=== PATIENT | female | born 1965 | race Caucasian/White ===

== ENCOUNTER 2019-12-28 17:52 | Inpatient (IN) ==
--- NOTE | 2019-12-28 18:21 | PROVIDER DOCUMENTATION ---
HPI-General Adult - General Chief Complaint: Abdominal Pain Stated Complaint: FLUID OVERLOAD Time Seen by Provider: 12/28/19 18:06 Source: patient Allergies/Adverse Reactions: Patient Allergies Allergy/AdvReac Type Severity Reaction Status Date / Time codeine Allergy SWELLING Verified 12/27/19 15:33 Home Medications: Home Medication List Medication Instructions Recorded Confirmed Last Taken Type Esomeprazole Magnesium 40 mg PO DAILY 12/27/19 12/27/19 Unknown History Furosemide [Lasix] 40 mg PO DAILY 12/27/19 12/27/19 Unknown History Hydromorphone [Dilaudid] 2 mg PO Q4H PRN PRN #9 tab 12/27/19 Unknown Rx LISINOpril [Prinivil] 20 mg PO DAILY 12/27/19 12/27/19 Unknown History Nadolol 20 mg PO DAILY 12/27/19 12/27/19 Unknown History Paroxetine HCl [Paxil] 30 mg PO DAILY 12/27/19 12/27/19 Unknown History Spironolactone 100 mg PO DAILY 12/27/19 12/27/19 Unknown History - History of Present Illness -Gen Adult Nature of Presenting Problems: [id number] presents to the ER for the second time in 2 days. She was seen at [facility] yesterday for a head injury and ascites/acute hepatic encephalopathy. Dr Parks, who is also the attending here today, attempted to admit the patient to the hospital from [facility]. However, the patient refused. She is here today, with increasing confusion, lethargy, and edema. Location of Pain/Injury: reports: abdomen Timing: reports: getting worse Associated Symptoms: denies: cough, vomiting Similar Symptoms Previously?: Yes Recently seen or treated by another doctor?: Yes Review of Systems - Adult - REVIEW OF SYSTEMS - ADULT Constitutional: reports: see HPI Eyes: reports: no symptoms reported Ears, Nose, Mouth & Throat: reports: no symptoms reported Cardiovascular: reports: see HPI, palpitations Respiratory: reports: no symptoms reported Gastrointestinal: reports: see HPI, abdominal pain (distention) Genitourinary: reports: no symptoms reported Musculoskeletal: reports: no symptoms reported Integumentary: reports: see HPI, other (yellowing of skin) Neurological: reports: see HPI, slurred speech, other (lethargy) Psychiatric: reports: no symptoms reported Endocrine: reports: no symptoms reported Hematologic/Lymphatic: reports: no symptoms reported Allergic/Immunologic: reports: no symptoms reported All Other Systems: Reviewed and Negative Past History - Adult - PAST MEDICAL HISTORY-ADULT Review of Records: reports: Old Records Reviewed, Nursing Assessment Review, Medications Reviewed, Social history reviewed & non-contributory. Major Childhood Illnesses: reports: denies history Cardiovascular: reports: denies history Respiratory: reports: denies history Gastrointestinal: reports: liver disease ([place]) Obstetrical/Gynecological: reports: denies history Genitourinary: reports: denies history Musculoskeletal: reports: denies history Neurological: reports: denies history Endocrine/Immune: reports: denies history Other Conditions: reports: denies history - IMMUNIZATION STATUS Childhood Immunizations: See Nurse Assessment Flu Vaccine: See Nurse Assessment - FAMILY HISTORY Family History: reviewed, not pertinent - SOCIAL HISTORY Living Situation: family Physical Exam-General - PHYSICAL EXAM-ADULT Initial Vital Signs Reviewed: Yes - CONSTITUTIONAL General Appearance: thin (with abd distention), lethargic, slow to respond - EYES Eyes: PERRL/EOMI, scleral icterus - HEAD, EARS, NOSE, MOUTH & THROAT HENMT: normocephalic/atraumatic, moist mucous membranes, TMs normal - NECK Neck: non-tender, full range of motion, supple - RESPIRATORY Respiratory: lungs clear, normal breath sounds, increased rate - CARDIOVASCULAR Cardiovascular: tachycardia - GASTROINTESTINAL (ABDOMEN) Abdominal Exam: distended, tenderness (generalized) - SKIN Integumentary: warm/dry, jaundice - PSYCHIATRIC Psych/Mental Status: negative: normal thought content (slow to process questions, slow to answer, falls asleep during conversation) Progress - PLAN OF CARE/RESULTS Progress/Plan/Lab Results: Orders Category Date Time Status CT ABDOMEN/PELVIS W/O CONTRAST [CT] Stat Exams 12/28/19 18:15 Ordered AMMONIA [CHEM] Stat Lab 12/28/19 18:15 Uncollected CBC WITH ELECTRONIC DIFF [HEME] Stat Lab 12/28/19 18:14 Uncollected COMPREHENSIVE METABOLIC PANEL [CHEM] Stat Lab 12/28/19 18:15 Uncollected UA NIMS W/REFLEX CULT [URINALYSIS] Stat Lab 12/28/19 18:15 Uncollected URINE DRUG SCREEN Stat Lab 12/28/19 18:15 Uncollected Result Diagrams: 12/28/19 18:11 - CONSULTS/PCP/HOSPITALIST Notification #1 *Consult/PCP/Hospitalist*: SARIAH Agarwal Time Discussed: 18:48 Reason/Comments: ascites, hepatic encephalopathy Consult Disposition: Admit Departure - Departure Date of Disposition Decision: 12/28/19 Time of Disposition Decision: 18:49 DIAGNOSIS: Ascites of liver, Hepatic encephalopathy Disposition: ADMITTED INPATIENT 09 [facility] Medical Emergency: Emergent Condition: Critical Additional Instructions: ED Follow Up Instructions: You have been treated by a care provider in the Emergency Department. These instructions are being provided to you so you can have an understanding of how to care for yourself upon discharge. Upon discharge from the Emergency Department, you are responsible for making arrangements for follow-up care by a physician of your choice. Take all prescribed medications as directed. Return to the Emergency Department immediately for any new or worsening symptoms. You may call the Physician Referral phone number at [phone] to obtain a list of Physicians who are taking new patients. Referrals and Follow-Ups: Hemant Nair MD [Primary Care Provider] - - Critical Care Note This patient required my direct & personal management of CC.: No Attestation - Physician/ HANNAH Attestation Patient care was provided by Advanced Practice Provider:: Yes Advanced Practice Provider:: Richie Paris Advanced Practice Provider documentation review:: The Mid-level provider documentation, treatment plan and medical decision making was reviewed by the physician who agrees with all treatment and medical decision making by the MLP. The physician spent face to face time with patient:: No Advanced Practice Provider documentation review:: Supervising physician onsite and consulted in the evaluation and care of this patient. The physician did not have a face to face encounter with the patient.
[2019-12-28 18:54] LABS: BASO# 0.03 X1000 (0.0-0.2); BASO% 0.2 % (0.0-0.8); EOS# 0.44 X1000 (0.0-0.7); EOS% 3.5 % (0.0-10.0); HEMATOCRIT 25.7 % (37.0-47.0); HEMOGLOBIN 8.9 g/dL (12.0-16.0); LYMPH# 1.16 X1000 (1.2-3.4); LYMPH% 9.1 % (20.5-51.1); MCH 33.2 PG (27-31); MCHC 34.6 g/dL (33-37); MCV 95.9 FL (81-99); MONO# 1.33 X1000 (0.11-0.59); MONO% 10.4 % (1.7-9.3); MPV 8.7 FL (7.4-10.4); NEUT# 9.79 X1000 (1.4-6.5); NEUT% 76.8 % (42.2-75.2); PLT 202 X1000 (130-400); RBC 2.68 XMIL (4.2-5.4); RDW 15.4 % (11.5-14.5); WBC 12.75 X1000 (4.8-10.8)
[2019-12-28 18:56] LABS: AGAP 8; ALB/GLOB RATIO 0.7; ALBUMIN 2.8 g/dL (3.5-5.0); ALKALINE PHOSPHATASE 104 U/L (32-104); BUN 8 mg/dL (8-22); CALCIUM 8.4 mg/dL (8.8-10.2); CHLORIDE 92 mmol/L (98-107); COSMO 249; CREATININE 0.6 mg/dL (0.5-0.9); ESTIMATED GFR > 60; GLUCOSE 116 mg/dL (70-104); GOT 42 U/L (10-30); GPT 24 U/L (10-36); POTASSIUM 4.3 mmol/L (3.5-5.1); SODIUM 124 mmol/L (136-145); TCO2 24 mmol/L (25-35); TOTAL BILIRUBIN 5.43 mg/dL (0.20-1.00); TOTAL PROTEIN 6.8 g/dL (6.3-8.3)
[2019-12-28 19:03] LABS: INR 1.55; PROTIME 18.9 Seconds (11.0-16.0)
[2019-12-28 19:04] LABS: PTT 44.6 Seconds (22.3-41.8)
--- NOTE | 2019-12-28 19:25 | Diag Imaging Result Doc PS360 ---
EXAM: CT ABDOMEN/PELVIS W/O CONTRAST INDICATION: ascites TECHNIQUE: This exam was performed using automated exposure control, adjustment of mA or kV according to patient size, and/or use of iterative reconstruction technique. COMPARISON: None. FINDINGS: There is a large right pleural effusion and marked atelectasis of the right lower lobe. There is patchy airspace consolidation in the lingula and the superior aspect of the left upper lobe suggesting patchy pneumonia versus edema. There is no pleural effusion on the left. There is large volume ascites seen throughout the abdomen. There are calcified stones in the gallbladder lumen. There is questionable mild nodularity at the liver contour which could indicate cirrhosis. The liver is grossly unremarkable as imaged with unenhanced CT, otherwise. There is borderline to mild prominence of the spleen measuring 13.1 cm axially. The pancreas and adrenal glands are unremarkable. The kidneys are unremarkable. The urinary bladder is distended and is unremarkable, otherwise. There appears to have been a prior hysterectomy. There is no evidence of bowel obstruction. The ascending colonic wall appears somewhat thickened. This may be due to the adjacent ascites, however. Correlate clinically to exclude colitis. The remainder of the GI tract is essentially unremarkable. No free abdominal gas is appreciated. There is diffuse mesenteric edema. There is diffuse body wall anasarca. There is no evidence of acute osseous abnormality. IMPRESSION: 1.Large volume ascites. 2.Diffuse mesenteric edema and body wall edema suggesting anasarca. 3.Questionable slight nodularity of the liver contour which could indicate cirrhosis. 4.Borderline to mildly prominent spleen. 5.Somewhat thickened ascending colonic wall, which could be due to the adjacent ascites. Correlate clinically to exclude colitis. 6.Large right pleural effusion with prominent right lower lobe atelectasis. Electronically signed by Hemant Arrington 12/28/2019 7:22 PM
[2019-12-28] MEDS ORDERED: LACTULOSE PO ONE (20:12)
[2019-12-28 20:31] LABS: URINE SOURCE CLEAN CATCH
[2019-12-28 20:38] LABS: BILIRUBIN URINE NEGATIVE (NEGATIVE); BLOOD URINE NEGATIVE (NEGATIVE); COLOR YELLOW; GLUCOSE URINE NEGATIVE (NEGATIVE); KETONE URINE NEGATIVE (NEGATIVE); LEUKOCYTES URINE NEGATIVE (NEGATIVE); NITRITE URINE NEGATIVE (NEGATIVE); PROTEIN URINE NEGATIVE (NEGATIVE); SP GRAVITY URINE 1.015; TURBIDITY URINE CLEAR (CLEAR); UROBILINOGEN URINE 2 mg/dL (NORMAL)
[2019-12-28 20:39] LABS: UR EPITHELIAL CELLS <10 /HPF (<10); URINE BACTERIA NEGATIVE /HPF; URINE RBC <10 /HPF (<10); URINE WBC <10 /HPF (<10)
[2019-12-28 21:01] LABS: UR AMPHETAMINES QUAL NONE DETECTED (NONE DETECT); UR BARBITUATES QUAL NONE DETECTED (NONE DETECT); UR BENZODIAZEPIN QUAL NONE DETECTED (NONE DETECT); UR CANNABINOIDS QUAL NONE DETECTED (NONE DETECT); UR COCAINE QUAL NONE DETECTED (NONE DETECT); UR METHADONE QUAL NONE DETECTED (NONE DETECT); UR OPIATES QUAL PRESUMPTIVE POSITIVE (NONE DETECT); UR OXYCODONE QUAL NONE DETECTED (NONE DETECT); UR PCP QUAL NONE DETECTED (NONE DETECT)
--- NOTE | 2019-12-28 21:29 | HISTORY AND PHYSICAL ---
REASON FOR ADMISSION: Increasing weakness and lethargy over the last 1 week. She is a patient of Dr. Hemant Nair. Ms. Dang Ramos is a 54-year-old white female with a past medical history of chronic liver disease, hypertension, and reflux disease, who was seen yesterday after she fell and landed on her back. A head CT was done to rule out intracranial bleed. We were going to admit her yesterday. She declined admission. Came in today at the behest of her mother who noticed that the patient has become more lethargic, weak, and somewhat intermittently confused. The patient herself is able to follow commands and understand basic instructions. She is very slow to respond to questions at this time. Hence this is limiting for history from this patient. She admits to having diffuse back pain. No abdominal pain, but says that her abdomen has gotten more distended over the last week. No PND or orthopnea. No chest pain. No fever. No chills. No diarrhea. No nausea or vomiting. REVIEW OF SYSTEMS: Twelve-system review was done, albeit limited, with positive findings noted above. ALLERGIES: Codeine. HOME MEDICATIONS: Have not been officially reconciled, although I did notice that the patient was given some Dilaudid 2 mg yesterday. SURGICAL HISTORY: Patient says she has only had a tonsillectomy and hysterectomy. FAMILY HISTORY: Negative for liver disease, but positive history for type 2 diabetes and heart disease. SOCIAL HISTORY: Says she does not smoke or use illicit drugs. Does not smoke. Drinks "socially." LABORATORY [place]: [place] [id number], hemoglobin and hematocrit 9 and 25, platelets 202, neutrophils 76%. Sodium is 124, BUN is 8, creatinine 0.6. Bilirubin is 5.4, ammonia 40. Troponin and lactate are negative. PT is 19, INR 1.5. CT abdomen shows large-volume ascites, diffuse mesenteric edema and wall edema, questionable nodularity of the liver contour suggestive of cirrhosis. Mild splenomegaly. Somewhat thickened ascending colonic wall. Large right pleural effusion with prominent right lobe atelectasis. Urinalysis is pending. Blood cultures were drawn. PHYSICAL EXAMINATION: VITAL SIGNS: Blood pressure 122/72. GENERAL: She is a chronically ill, lethargic, somnolent, middle-aged white female. She is oriented to person and place, but off on time. Affect is flat. HEENT: Head is normocephalic, atraumatic. Eyes: ARINA, EOMI. She is icteric. Mildly pale. ENT exam negative. Mild xerostomia. No exudates, no cyanosis. NECK: Supple with noticeable JVD. Borderline hepatojugular reflux. CHEST: Decreased air entry in the right lower half of the lung. No wheezes. No crepitations. CARDIOVASCULAR: First and second heart sounds heard. No gallops, murmurs or rubs. Rhythm is regular. ABDOMEN: Distended, soft. Positive fluid wave. No tenderness noted. No masses appreciated. Bowel sounds are not heard. RECTAL: Exam deferred. EXTREMITIES: There is 2+ pitting edema up to the midshin. No clubbing or peripheral cyanosis. Distal pulse volumes are diminished. NEUROLOGICAL: Mild asterixis. No focal deficits. SKIN: Intact with slightly decreased turgor. MUSCULOSKELETAL: Significantly hypotonic. ASSESSMENT: 1. Hepatic encephalopathy. 2. Hypovolemic, hypotonic hyponatremia secondary to cirrhosis. 3. Anemia of chronic inflammation. 4. Leukocytosis of questionable etiology. 5. Intravascular volume depletion. 6. Cirrhosis, 7. Hypertension. PLAN: Patient will be admitted and started on lactulose and Xifaxan to address encephalopathy. Cannot rule out underlying spontaneous bacterial peritonitis as a trigger here, and the patient is on Rocephin, since I doubt we have Claforan in-house. Consult GI to see patient. Patient will undergo diagnostic and therapeutic paracentesis tomorrow. Decision whether to use albumin should be addressed prior to prior to paracentesis tomorrow based on albumin levels tomorrow. The patient clinically is intravascularly depleted, and I am somewhat at a loss as to whether to give the patient crystalloids versus to diurese the patient. We will hold off for either decision pending paracentesis at which time things will become much more clear. Continue beta blockers and/or spironolactone for cirrhotic disease and blood pressure. Follow up with ascitic fluid analysis. cc: MD Hemant Bell MD
[2019-12-28] MEDS ORDERED: TYLENOL PO PRN (22:24)
[2019-12-28] MEDS ORDERED: ZOFRAN IV PRN (22:24)
[2019-12-28] MEDS: XIFAXAN PO SCH (23:33)
[2019-12-28] MEDS: ZINC SULFATE PO SCH (23:33)
[2019-12-28] MEDS: ROCEPHIN 1 GM in NS 50 ML IV SCH (23:33)
[2019-12-28] MEDS: LACTULOSE PO SCH (23:33)
[2019-12-29] MEDS: LACTULOSE PO SCH ×2 (06:56→10:50)
[2019-12-29 07:02] LABS: BASO# 0.06 X1000 (0.0-0.2); BASO% 0.5 % (0.0-0.8); EOS# 0.37 X1000 (0.0-0.7); EOS% 2.8 % (0.0-10.0); HEMOGLOBIN 8.4 g/dL (12.0-16.0); IMM GRAN# 0.04 X1000 (0.0-0.04); IMM GRAN% 0.3 % (0.0-0.5); LYMPH# 1.19 X1000 (1.2-3.4); MCH 31.8 PG (27-31); MCHC 33.6 g/dL (33-37); MCV 94.7 FL (81-99); MONO# 1.57 X1000 (0.11-0.59); MONO% 11.8 % (1.7-9.3); MPV 8.9 FL (7.4-10.4); NEUT# 10.06 X1000 (1.4-6.5); NEUT% 75.6 % (42.2-75.2); PLT 204 X1000 (130-400); RBC 2.64 XMIL (4.2-5.4); RDW 15.4 % (11.5-14.5); WBC 13.29 X1000 (4.8-10.8)
[2019-12-29 07:27] LABS: AGAP 10; ALB/GLOB RATIO 0.7; ALBUMIN 2.7 g/dL (3.5-5.0); ALKALINE PHOSPHATASE 100 U/L (32-104); BUN 10 mg/dL (8-22); CALCIUM 8.5 mg/dL (8.8-10.2); CHLORIDE 94 mmol/L (98-107); COSMO 254; CREATININE 0.6 mg/dL (0.5-0.9); ESTIMATED GFR > 60; GLUCOSE 102 mg/dL (70-104); GOT 40 U/L (10-30); GPT 21 U/L (10-36); MAGNESIUM 1.4 mg/dL (1.5-2.7); POTASSIUM 4.3 mmol/L (3.5-5.1); SODIUM 127 mmol/L (136-145); TCO2 23 mmol/L (25-35); TOTAL BILIRUBIN 5.31 mg/dL (0.20-1.00); TOTAL PROTEIN 6.5 g/dL (6.3-8.3)
[2019-12-29 07:35] LABS: INR 1.75; PROTIME 20.8 Seconds (11.0-16.0)
[2019-12-29] MEDS ORDERED: MAGNESIUM SULFATE 4 GM/S.W.I. 4 GM/100 ML IVPB IV ONE (09:15)
--- NOTE | 2019-12-29 10:07 | Diag Imaging Result Doc PS360 ---
US ABD PARACENTESIS W S/I - 12/29/2019 INDICATION: diagnostic and therapeutic paracent COMPARISON: CT from 12/28/2019 FINDINGS: The risks and benefits of the procedure were discussed with the patient. All questions were answered. Written and verbal consent was obtained. Ultrasound scanning demonstrated ascites. Overlying skin was prepped and draped in sterile fashion. Anesthesia was achieved with injection of 10 cc 1% lidocaine. The paracentesis catheter was advanced until the return of ascites fluid. 6.3 L was aspirated. The catheter was withdrawn intact. The patient reported no symptoms from the procedure. IMPRESSION: Successful and uncomplicated ultrasound-guided paracentesis. Electronically signed by Humble Saunders 12/29/2019 10:04 AM
[2019-12-29] MEDS: ZINC SULFATE PO SCH ×2 (10:51→20:33)
[2019-12-29] MEDS: XIFAXAN PO SCH ×2 (10:51→20:33)
[2019-12-29] MEDS: ALDACTONE PO SCH (10:51)
[2019-12-29] MEDS: PROTONIX IV SCH ×2 (11:03→20:32)
[2019-12-29] MEDS: SODIUM CHLORIDE 0.9% INJ SCH ×2 (11:03→20:33)
[2019-12-29 11:48] LABS: ALBUMIN BODY FLUID 0.6 g/dL; AMYLASE BODY FLUID 9 U/L
[2019-12-29 12:08] LABS: BODY FLUID SOURCE PERITONEAL FLUID; WBC BF 105 /cumm
[2019-12-29 12:09] LABS: MONOS 53 %; POLYS 47 %
[2019-12-29] MEDS: VITAMIN K 10 MG in NS 50 ML IV SCH (12:44)
--- NOTE | 2019-12-29 14:30 | PROGRESS NOTE ---
DATE: 12/29/2019 SUBJECTIVE: The patient reports feeling fine. She had a paracentesis this morning. Apparently, they have removed 6.2 L of ascitic fluid. OBJECTIVE: Vital Signs: Temperature 98.4 degrees, heart rate 121, respiratory rate 18, blood pressure 125/65, O2 saturation 95% on room air. General Examination: This is a chronically ill- looking, 54-year-old, female lying in bed, in no acute distress. Cardiovascular Examination: S1 and S2 heard. No murmurs, gallops, or rubs. Regular rate and rhythm. Respiratory Examination: Clear bilaterally to auscultation. No work of breathing or using accessory muscles. Abdomen: Distended. Ascites present. Bowel sounds present but distant. No organomegaly is noted. Extremities: No clubbing or cyanosis but there is 2+ pitting edema in both lower extremities. Neurological Examination: Mild asterixis. No focal deficits. The patient is alert and oriented. Laboratory Data: White cell count 13.39, hemoglobin 8.4, hematocrit 25.0, platelets 205,000. INR 1.75. BMP reveals sodium 127, with phosphorus 3.6, on admission 1.4. ASSESSMENT AND PLAN: 1. Hepatic encephalopathy. That condition I think is better. She is on rifaximin and lactulose. I think she has been in mild encephalopathy, mild asterixis. She looks definitely oriented and alert. We will continue with current management. 2. Massive ascites. We have performed an ultrasound-guided paracentesis and we removed so far 6.2 L of ascitic fluid. Labs have been ordered for this ascitic fluid. 3. Anemia of chronic disease. Stable. We will continue to monitor CBC. 4. Leukocytosis of questionable etiology. The patient has been started on Rocephin for possible spontaneous bacterial peritonitis. Physical exam did not disclose any signs of peritoneal irritation. At this point, we will continue with the same management. 5. Hypertension. Blood pressure is under control. We will continue with the same management. cc: Jesus Ocampo MD
--- NOTE | 2019-12-29 16:27 | GASTROENTEROLOGY CONSULTATION ---
DATE: 12/29/2019 HEPATOLOGY: Dr Castillo at [facility] REASON FOR CONSULT: Hepatic encephalopathy. HISTORY OF PRESENT ILLNESS: Ms. Ramos is a 54-year-old female who came into the hospital yesterday complaining that she was weak and tired with low-grade fever and chills. She has a past medical history of chronic alcoholic liver disease complicated with cirrhosis, hypertension, and reflux disease. She mentioned that she had fallen backwards on her head in the garage at home. Head and cervical spine CT showed no acute injury. Her mother had brought her to the hospital mentioning that the patient had been lethargic, weak, confused and was not able to follow any commands or follow any instructions. She has denied any nausea, vomiting, or abdominal pain. PAST MEDICAL HISTORY: Hypertension, chronic liver disease, GERD, Alcoholic cirrhosis, alcoholism quit since june [address] Castillo in October 2019 and her follow up appointment is on January 18, 2020 at [facility]. PAST SURGICAL HISTORY: Tonsillectomy and hysterectomy. ALLERGIES: Codeine. FAMILY HISTORY: Positive for diabetes and heart disease. SOCIAL HISTORY: The patient is a . She does not smoke or use illicit drugs, but used to have drink alcohol for many years and quit since june 2019. HOME MEDICATIONS: Nadolol 20 mg p.o. daily, omeprazole magnesium 40 mg p.o. daily, Lasix 40 mg p.o. daily, lisinopril is 20 mg p.o. daily, Paxil is 30 mg p.o. daily, Aldactone is 150 mg p.o. daily, Dilaudid 2 mg tablet every four hours as needed, Xanax 0.25 mg p.o. daily, gabapentin 300 mg two capsules p.o. twice a day, lactulose 15 mL is two tablespoons p.o. twice a day. REVIEW OF SYSTEMS: As per HPI, otherwise 12 point review of system is negative. PHYSICAL EXAM: Vital Signs: Temperature 98.4 degrees, pulse 121, respirations 18, blood pressure is 121/71, oxygen saturation 95% on room air. Weight is 179 pounds. BMI is 29.9 kg/m2. General: She is alert, oriented x1, and has periods of confusion. HEENT: Pale conjunctivae. Mild icterus. PERRL. Neck: Supple. Lungs: Clear to auscultation. Cardiovascular: The patient is tachycardic. Abdomen: Distended, Positive Ascites. Nontender. Hypoactive bowel sounds heard in all four quadrants. Extremities: No clubbing or cyanosis. Generalized edema in the lower extremities and upper extremities. Neurologic: Alert oriented x1. LABORATORY DATA: WBCs 13.29, RBC is 2.64, hemoglobin is 8.4, hematocrit is 25.5, platelet count is 204,000. PT 20.8, INR is 1.75. Sodium is 127, potassium is 4.3, chloride is 94, carbon dioxide is 23, anion gap is 10, BUN is 10, creatinine is 0.6, glucose is 102, calcium is 8.5. Phosphorus is 3.6, magnesium is 1.4, total bilirubin is 5.31, AST 40, ALT 21, alkaline phosphatase 100, albumin is 2.7. Toxicology has shown presumptive positive for opioids. IMAGING: U/s guided paracentesis was done today and 6.2 L fluid was taken out. IMPRESSION AND PLAN: Likely Alcoholic Cirrhosis Ascites Anemia Coagulopathy Jaundice Need to rule out SBP Hepatic encephalopathy PLAN: Ms. Ramos is a 54-year-old female with a history of liver disease. GI is following her for hepatic encephalopathy. The patient is currently receiving Xifaxan and lactulose for her hepatic encephalopathy. The patient does have ascites and the paracentesis was done today. 6.2 L of fluid was taken out. We have sent her fluids to check for SBP. Fluid cultures are pending. The patient is also receiving antibiotic, Rocephin. She is on PPIs twice a day. We will continue to monitor the patient and follow the plan of care per PCP. This plan was discussed with Dr. Jones. Patient will continue to follow up with Dr Castillo at [facility] as scheduled. Restrict sodium to less than 2g in 24 hours and may need free fluid restriction to less than 1.5 litres in 24 hours for help manage hyponatremia and Ascites. Continue to check Labs like CBC CMP PT PTT INR daily. Thank you for your consult. Please call us for any further questions or concerns. Dictated by SARIAH Vazquez for Evan Jones MD cc: Evan Jones MD I have seen and examined the patient myself and I agree with the above plan of care. Please call us with any further questions or concerns. Discussed the plan of care with the patient and her family at bedside. MARGARITA
[2019-12-29] MEDS: ROCEPHIN 1 GM in NS 50 ML IV SCH (20:33)
[2019-12-30] MEDS: PROTONIX IV SCH ×3 (01:24→09:05)
[2019-12-30] MEDS: ROCEPHIN 1 GM in NS 50 ML IV SCH ×3 (01:24→22:38)
[2019-12-30 06:49] LABS: BASO# 0.03 X1000 (0.0-0.2); BASO% 0.3 % (0.0-0.8); EOS% 2.6 % (0.0-10.0); HEMOGLOBIN 8.2 g/dL (12.0-16.0); IMM GRAN# 0.03 X1000 (0.0-0.04); IMM GRAN% 0.3 % (0.0-0.5); LYMPH# 1.39 X1000 (1.2-3.4); MCHC 34.2 g/dL (33-37); MCV 93.8 FL (81-99); MONO# 1.27 X1000 (0.11-0.59); MPV 8.8 FL (7.4-10.4); NEUT# 8.54 X1000 (1.4-6.5); NEUT% 73.8 % (42.2-75.2); PLT 167 X1000 (130-400); RBC 2.56 XMIL (4.2-5.4); RDW 15.6 % (11.5-14.5); WBC 11.56 X1000 (4.8-10.8)
[2019-12-30 07:12] LABS: AGAP 10; ALBUMIN 2.6 g/dL (3.5-5.0); BUN 7 mg/dL (8-22); CALCIUM 8.2 mg/dL (8.8-10.2); CHLORIDE 91 mmol/L (98-107); COSMO 248; CREATININE 0.5 mg/dL (0.5-0.9); ESTIMATED GFR > 60; GLUCOSE 107 mg/dL (70-104); MAGNESIUM 1.6 mg/dL (1.5-2.7); PHOSPHORUS 2.5 mg/dL (2.7-4.5); POTASSIUM 3.9 mmol/L (3.5-5.1); SODIUM 124 mmol/L (136-145); TCO2 23 mmol/L (25-35)
[2019-12-30] MEDS: ALDACTONE PO SCH (08:24)
[2019-12-30] MEDS: XIFAXAN PO SCH ×3 (08:24→22:38)
[2019-12-30] MEDS: ALBUMIN 25% IV SCH (08:24)
[2019-12-30] MEDS: SODIUM CHLORIDE 0.9% INJ SCH (08:24)
[2019-12-30] MEDS: ZINC SULFATE PO SCH ×3 (08:37→22:38)
[2019-12-30] MEDS ORDERED: SODIUM PHOSPHATE 35 MMOL in NS 250 ML IV ONE (08:42)
[2019-12-30] MEDS: VITAMIN K 10 MG in NS 50 ML IV SCH (08:49)
--- NOTE | 2019-12-30 10:03 | Diag Imaging Result Doc PS360 ---
EXAM: WRIST COMPLETE RIGHT 12/30/2019 HISTORY: fall TECHNIQUE: Right wrist three views COMMENT: There is no evidence of fracture or dislocation. There is no evidence of erosion or periosteal reaction. IMPRESSION: No acute bony abnormality. Electronically signed by Adolph Alcaraz 12/30/2019 10:00 AM
[2019-12-30] MEDS: LASIX PO SCH (10:48)
--- NOTE | 2019-12-30 10:48 | PROGRESS NOTE ---
DATE: 12/30/2019 SUBJECTIVE: The patient still has minimal asterixis although she looks a little bit more confused. She was complaining of pain in the right wrist. She had a fall. We have checked x- rays. I did not find any fracture. OBJECTIVE: Vital Signs: Temperature 98.1 degrees, heart rate 116, respiratory rate 20, blood pressure 135/70, and O2 saturation 97% on room air. General: This is a chronically ill-looking, 54-year-old female lying in bed in no acute distress. Cardiovascular: S1 and S2 heard. No murmurs, gallops, or rubs. Regular rate and rhythm. Respiratory: Clear bilaterally to auscultation. No work of breathing or using accessory muscles. Abdomen: Distended. Ascites present. Bowel sounds present, but distant. No organomegaly noted. Extremities: No clubbing or cyanosis, but there is still 2+ pitting edema in both lower extremities. Neurological: Mild asterixis. Sometimes, patient looks a little bit confused and speech is slow, but no focal deficits noted. Patient moves all 4 extremities. LABORATORY DATA: White cell count 11.56, hemoglobin 8.2 hematocrit 24.0, and platelets 167,000 with BMP that reveals sodium 124, normal creatinine, and phosphorus 2.5. ASSESSMENT AND PLAN: 1. Hepatic encephalopathy. I think this patient is having mild degree of hepatic encephalopathy so she is on rifaximin and lactulose. She is looking better today. The plan is to keep her one more day with both medications. Most likely, we will be able to let her go home tomorrow. 2. Suspicious for spontaneous bacterial peritonitis. At the time that she was admitted to the hospital, she was started on antibiotics without doing paracentesis. The studies from ascites did not reveal any infection. I prefer to continue with antibiotics right now. I am also considering that she has some degree of hepatic encephalopathy. Upon discharge, we can switch to any medication that can cover gram-negative like ciprofloxacin tomorrow. 3. Massive ascites. At admission, we performed ultrasound-guided paracenteses, and we removed so far 6.2 L of ascitic fluid. No signs of infection. There is still residual ascites present. We will continue to monitor. 4. Hypertension. Blood pressure is under control. We will continue with same management. 5. Disposition. I think at this point, patient is getting better. Plan to keep her for the next 24 to 48 hours to see that she is more awake, and not having any asterixis. We will continue to monitor this patient in the hospital. cc: Jesus Ocampo MD
--- NOTE | 2019-12-30 12:42 | GASTROENTEROLOGY PROGRESS NOTE ---
DATE: 12/30/2019 SUBJECTIVE: Ms. Ramos is a 54-year-old female. She was sitting on the chair and nursing assistants were providing ADLs. Patient has denied any nausea, vomiting, abdominal pain. She did complain that her head was hurting little bit. The patient has been having positive bowel. OBJECTIVE: Vital Signs: Temperature 98 degrees, pulse is 114, respirations 23, blood pressure 138/72, oxygen saturation 98% on room air. The patient's weight is 179 pounds. BMI is 28.8 kg/m2. General: She is alert, oriented x3. Speech is slow. HEENT: Pale conjunctivae. Mild icterus. PERRL. Neck: Supple. Lungs: Clear to auscultation. Cardiovascular: Patient is tachycardic. Abdomen: Obese, soft, nontender. Has a Band-Aid on the right side of the abdomen where the paracentesis was done. Extremities: No clubbing, no cyanosis, generalized edema. Pedal pulses 2+ bilaterally. Neurologic: Alert, oriented x4. LAB: WBC 11.54, RBC is 2.56, hemoglobin 8.2, hematocrit is 24.0, platelet count is 167,000. Sodium is 124, potassium 3.9, chloride is 91, carbon dioxide is 23, anion gap is 10, BUN 7, creatinine 0.5, glucose is 107, calcium is 8.2, phosphorus is 3.5, magnesium is 1.6, albumin is 2.6. The patient's peritoneal fluid for SBP was negative. Wrist x-ray today showed no acute bony abnormalities. IMPRESSION AND PLAN: 1. Likely alcoholic cirrhosis. 2. Ascites. 3. Anemia. 4. Coagulopathy. 5. Hepatic encephalopathy. 6. Hyponatremia. 7. Hypoalbuminemia. PLAN: Ms. Ramos is a 54-year-old female with a history of liver disease. GI is following her for hepatic encephalopathy. The patient's sodium levels are low. She is currently on a fluid restriction of 1500 mL/h. The patient's peritoneal fluid for SBP has been negative. She is currently receiving antibiotic Rocephin. We will continue with that. Patient is also on Xifaxan and lactulose for hepatic encephalopathy. She is getting vitamin K for her cougulopathy. We will continue to monitor the patient and follow the plan of care per PCP. This plan was discussed with Dr. Pineda. Please call us for any further questions or concerns. Dictated by SARIAH Vazquze for Isidro Pineda MD [facility]
[2019-12-30] MEDS: ULTRAM PO PRN ×2 (14:39→20:52)
[2019-12-31] MEDS: ULTRAM PO PRN ×2 (04:25→11:51)
[2019-12-31] MEDS: PROTONIX PO SCH ×2 (05:36→08:59)
[2019-12-31 07:09] LABS: BASO# 0.02 X1000 (0.0-0.2); BASO% 0.2 % (0.0-0.8); EOS% 2.8 % (0.0-10.0); HEMOGLOBIN 8.2 g/dL (12.0-16.0); IMM GRAN# 0.03 X1000 (0.0-0.04); IMM GRAN% 0.3 % (0.0-0.5); LYMPH# 1.07 X1000 (1.2-3.4); MCH 32.2 PG (27-31); MCHC 34.2 g/dL (33-37); MCV 94.1 FL (81-99); MONO# 1.24 X1000 (0.11-0.59); MONO% 11.5 % (1.7-9.3); MPV 8.7 FL (7.4-10.4); NEUT# 8.09 X1000 (1.4-6.5); NEUT% 75.2 % (42.2-75.2); PLT 145 X1000 (130-400); RBC 2.55 XMIL (4.2-5.4); RDW 15.6 % (11.5-14.5); WBC 10.75 X1000 (4.8-10.8)
[2019-12-31 07:45] LABS: AGAP 11; ALBUMIN 2.8 g/dL (3.5-5.0); BUN 4 mg/dL (8-22); CALCIUM 8.2 mg/dL (8.8-10.2); CHLORIDE 92 mmol/L (98-107); COSMO 250; CREATININE 0.5 mg/dL (0.5-0.9); ESTIMATED GFR > 60; GLUCOSE 92 mg/dL (70-104); PHOSPHORUS 2.7 mg/dL (2.7-4.5); POTASSIUM 3.3 mmol/L (3.5-5.1); SODIUM 126 mmol/L (136-145); TCO2 23 mmol/L (25-35)
[2019-12-31] MEDS ORDERED: KLOR-CON POWDER PACKET PO ONE (08:03)
[2019-12-31] MEDS: ALBUMIN 25% IV SCH (09:00)
[2019-12-31] MEDS: VITAMIN K 10 MG in NS 50 ML IV SCH (09:04)
[2019-12-31] MEDS: XIFAXAN PO SCH (09:04)
[2019-12-31] MEDS: ZINC SULFATE PO SCH (09:05)
[2019-12-31] MEDS: ALDACTONE PO SCH (09:05)
[2019-12-31] MEDS: LASIX PO SCH (09:05)
[2019-12-31] MEDS ORDERED: LACTULOSE PO SCH (09:45)
[2019-12-31] MEDS ORDERED: BLISTEX MEDICATED BERRY LIP BALM TOP PRN (11:55)
[2019-12-31 12:20] VITALS: BP 124/73
--- NOTE | 2019-12-31 13:37 | PROVIDER PROGRESS NOTE ---
Progress Note S: No acute overnight events. No N/V/F, CP, SOB, abdominal pain, rectal bleeding. She is tolerating PO. No confusion. O: Last Vital Signs Temp 98.4 F 12/31/19 12:19 Pulse 104 H 12/31/19 12:19 Resp 16 12/31/19 12:19 BP 124/73 12/31/19 12:19 Pulse Ox 99 12/31/19 12:19 Height 5 ft 5 in Weight 179 lb GEN: chronically ill appearing, NAD HEENT: mild icterus, MMM NECK: supple, no JVD PULM normal WOB CV: tachycardic, regular ABD: soft, distended, NT, BS present +ascites EXT: no cce NEURO: AAOx3, no asterixis LABS: 12/31/19 12/31/19 06:18 06:18 WBC 10.75 Hgb 8.2 L Plt Count 145 Sodium 126 L Potassium 3.3 L D Chloride 92 L Carbon Dioxide 23 L BUN 4 L Creatinine 0.5 Glucose 92 A/P Ms. Dang Ramos is a 54 year old woman with history of decompensated ETOH cirrhosis who presented with ascites who presented with hepatic encephalopathy and worsening ascites. Diagnostic and therapeutic LVP was negative for SBP. Her mental status has improved with lactulose and xifaxan. CXR was notable for large right hepatic hydrothorax. Labs notable for hypervolemic hyponatremia, thromboc ytopenia, hypokalemia, normocytic anemia, and coagulopathy. I have stopped empiric antibiotics. # Decompensated ETOH cirrhosis - Cirrhosis: check LFTs and INR daily - Ascites: s/p 6.2L removed; continue aldactone 100mg and lasix 40mg daily - PSE: improved; continue xifaxan and lactulose, titrate for 2-3 BMs daily - HCC screening: repeat US q6mo - EV screening: will need EGD to rule out varices as outpatient; defer to primary incinerator plant general supervisor - IMM: HAV/HBV immunity unknown - OLT: MELD-Na 27 yesterday; [facility] # Hypovolemic hyponatremia: continue 1500mL fluid restriction; trending Na # Thrombocytopenia: # Macrocytic anemia: check iron, ferritin, vitamin B12, folate # Coagulopathy: check INR daily # Pleural effusion: continue diuretics # Hypokalemia: replete prn Will follow with you
--- NOTE | 2019-12-31 14:02 | DISCHARGE SUMMARY ---
ADMISSION DATE: 12/28/2019 DISCHARGE DATE: 12/31/2019 ADMISSION DIAGNOSES: 1. Hepatic encephalopathy. 2. Hypovolemic hypotonic hyponatremia secondary to cirrhosis. 3. Anemia of chronic inflammation. 4. Leukocytosis with question of etiology. 5. Intravascular volume depletion. 6. Cirrhosis. 7. Hypertension. DISCHARGE DIAGNOSES: 1. Hepatic encephalopathy. 2. Suspicious for spontaneous bacterial peritonitis. 3. Massive ascites. 4. Hypertension. SURGERIES OR PROCEDURES: Ultrasound-guided paracentesis with 6.2 L of ascitic fluid removed on 12/29/2019. CONSULTATIONS: Jet Knott MD. HOSPITAL COURSE: Ms. Dang Ramos is a 54-year-old female, who presented with increased weakness and lethargy over the last week prior to admission. She has a medical history of chronic liver disease, hypertension, gastric reflux disease, who had a fall the day before presenting, landed on her back. Head CT ruled out any type of bleed, and she was going to be admitted then but she declined admission. She came back in due to the patient becoming more lethargic, weak, and intermittently confused. She is able to follow commands and understand basic instructions, but she was slow to respond to questions, so limited history was obtained on admission. She was having some diffuse back pain and that her abdomen had become much more distended. So on the , she went in for paracentesis ultrasound where they removed 6.3 L of ascitic fluid. Leukocytosis, really unsure as to where it was coming from, she has been started on Rocephin and it was for possible spontaneous bacterial peritonitis. So far no growth on those cultures. Blood cultures are also negative. Urinalysis was negative. She slowly improved, and she is stable for discharge home. DISCHARGE VITAL SIGNS: Temperature 98.4 degrees, heart rate 104, respiratory rate 16, blood pressure 124/73, O2 saturation 99% on room air. DISCHARGE LAB DATA: White blood cells 10,000, hemoglobin 8, hematocrit 24, platelet count 145,000. Sodium 126, potassium 3.3, BUN 4, creatinine 0.5, glucose 92, calcium 8.2, magnesium 1.5, albumin 2.8. Opiates positive in the urine. All cultures, blood and ascites fluid also negative to date. IMAGING: On 12/27 had abdominal and pelvic CT, showed large volume ascites and mesenteric edema with body wall edema. Liver is nodular, which also indicates cirrhosis. Spleen is prominent, somewhat thickened ascending colonic wall, needed to correlate to exclude colitis. Large right pleural effusion with prominent right lower lobe atelectasis. On the had a wrist x-ray of the right wrist with due to her fall and there was no acute findings with that. DISCHARGE MEDICATIONS: 1. Nexium 40 mg p.o. daily. 2. Neurontin 600 mg p.o. twice daily. 3. Lactulose p.o. twice daily. 4. Lasix 40 mg p.o. daily. 5. Paxil 30 mg p.o. daily. 6. Lisinopril 20 mg p.o. daily. 7. Spironolactone 50 mg p.o. daily. 8. Cefdinir 300 mg p.o. twice daily for 5 days. 9. Ultram 50 mg p.o. twice daily p.r.n. 10. Xifaxan 550 mg p.o. twice daily. DISCHARGE DIET: GI soft. DISCHARGE ACTIVITY: As tolerated. DISCHARGE INSTRUCTIONS: If symptoms return, please seek medical attention. Will need to follow up with a all terrain vehicle technician and your primary care provider. DISCHARGE DISPOSITION: Home. Dictated by SARIAH Farrell for Adonis Valente MD cc: SARIAH Farrell Patient admitted with hepatic encephalopathy that resolved with lactulose and rifaximin. some slight concern for SBP. ascites studies didn't really support that but we didn't get them until after she'd already been on antibiotics 2-3 days, so it was decided to finish a course of treatment for possible SBP anyway. her mental status now is essentially normal so she's discharging home. >30 minutes spent arranging discharge and counseling patient. [facility]
[2019-12-31 14:25] LABS: ALB/GLOB RATIO 1.1; ALBUMIN 3.1 g/dL (3.5-5.0); DIRECT BILIRUBIN 1.3 mg/dL (0.00-0.20); TOTAL BILIRUBIN 4.7 mg/dL (0.20-1.00); TOTAL PROTEIN 5.8 g/dL (6.3-8.3)
== END 2019-12-31 15:44 | disposition home health service (06) | DRG 432 ==
LOC: SUPCPDRO → ED 17:52 → SUATTDRO 17:53 → 4N 21:24
PROVIDERS: ATTEND Internal Medicine

== ENCOUNTER 2020-01-13 20:14 | Inpatient (IN) ==
[2020-01-13 21:24] LABS: BASO# 0.06 X1000 (0.0-0.2); BASO% 0.6 % (0.0-0.8); EOS# 0.49 X1000 (0.0-0.7); HEMATOCRIT 26.4 % (37.0-47.0); IMM GRAN# 0.02 X1000 (0.0-0.04); IMM GRAN% 0.2 % (0.0-0.5); LYMPH# 1.57 X1000 (1.2-3.4); LYMPH% 16.1 % (20.5-51.1); MCH 32.1 PG (27-31); MCHC 34.1 g/dL (33-37); MCV 94.3 FL (81-99); MONO# 1.06 X1000 (0.11-0.59); MONO% 10.9 % (1.7-9.3); MPV 9.5 FL (7.4-10.4); NEUT# 6.56 X1000 (1.4-6.5); NEUT% 67.2 % (42.2-75.2); PLT 243 X1000 (130-400); RDW 15.3 % (11.5-14.5); WBC 9.76 X1000 (4.8-10.8)
[2020-01-13 21:29] LABS: URINE SOURCE CLEAN CATCH
[2020-01-13 21:32] LABS: BILIRUBIN URINE NEGATIVE (NEGATIVE); BLOOD URINE NEGATIVE (NEGATIVE); COLOR YELLOW; GLUCOSE URINE NEGATIVE (NEGATIVE); KETONE URINE NEGATIVE (NEGATIVE); LEUKOCYTES URINE NEGATIVE (NEGATIVE); NITRITE URINE NEGATIVE (NEGATIVE); PROTEIN URINE TRACE mg/dL (NEGATIVE); SP GRAVITY URINE 1.016; TURBIDITY URINE HAZY (CLEAR); UROBILINOGEN URINE NORMAL (NORMAL)
[2020-01-13 21:34] LABS: UR EPITHELIAL CELLS <10 /HPF (<10); URINE BACTERIA NEGATIVE /HPF; URINE RBC <10 /HPF (<10)
[2020-01-13 21:41] LABS: URINE CASTS NONE SEEN; URINE YEAST NONE SEEN
[2020-01-13 21:42] LABS: URINE CRYSTALS NONE SEEN
[2020-01-13 21:56] LABS: ALB/GLOB RATIO 0.9; CALCIUM 8.6 mg/dL (8.8-10.2); CREATININE 2.6 mg/dL (0.5-0.9); POTASSIUM 4.7 mmol/L (3.5-5.1); TOTAL BILIRUBIN 2.62 mg/dL (0.20-1.00); TOTAL PROTEIN 6.5 g/dL (6.3-8.3)
[2020-01-13] MEDS ORDERED: NS 500 ML IV ONE (23:18)
--- NOTE | 2020-01-13 23:58 | PROVIDER DOCUMENTATION ---
This chart was entered by Pauline Hurtado Scribe, acting as scribe for Moshe Daly MD. HPI-General Adult - General Chief Complaint: Edema Stated Complaint: SWELLING IN ABDOMEN Time Seen by Provider: 01/13/20 20:39 Source: patient Allergies/Adverse Reactions: Patient Allergies Allergy/AdvReac Type Severity Reaction Status Date / Time codeine Allergy SWELLING Verified 12/27/19 15:33 Home Medications: Home Medication List Medication Instructions Recorded Confirmed Last Taken Type Esomeprazole Magnesium 40 mg PO DAILY 12/27/19 12/29/19 Unknown History Furosemide [Lasix] 40 mg PO DAILY 12/27/19 12/29/19 Unknown History LISINOpril [Prinivil] 20 mg PO DAILY 12/27/19 12/28/19 Unknown History Nadolol 20 mg PO DAILY 12/27/19 12/27/19 Unknown History Paroxetine HCl [Paxil] 30 mg PO DAILY 12/27/19 12/28/19 Unknown History Spironolactone 50 mg PO DAILY 12/27/19 12/28/19 Unknown History Gabapentin 2 cap PO BID 12/28/19 12/28/19 Unknown History Lactulose 2 tbs PO BID 12/28/19 12/28/19 Unknown History Cefdinir 300 mg PO BID #10 cap 12/31/19 Unknown Rx Rifaximin [Xifaxan] 550 mg PO BID tab 12/31/19 Unknown Rx Tramadol [Ultram] 50 mg PO BID PRN PRN #14 tab 12/31/19 Unknown Rx - History of Present Illness -Gen Adult Nature of Presenting Problems: 54 y/o female with history of cirrhosis presents to the ED with complaint of dizziness worse with standing and increasing abdominal ascites and bilateral lower extremity edema. The patient states cirrhosis is non-alcoholic and of unknown origin and last paracentesis at least two weeks ago. She did see her PCP yesterday and after visit from [facility] earlier today she was contacted by Dr. Nair to come to the ED for possible admission. Review of Systems - Adult - REVIEW OF SYSTEMS - ADULT Constitutional: reports: hi Eyes: denies: no symptoms reported Ears, Nose, Mouth & Throat: denies: no symptoms reported Cardiovascular: denies: no symptoms reported Respiratory: denies: no symptoms reported Gastrointestinal: reports: see HPI Genitourinary: denies: no symptoms reported Musculoskeletal: denies: no symptoms reported Integumentary: denies: no symptoms reported Neurological: denies: no symptoms reported Psychiatric: denies: no symptoms reported Endocrine: denies: no symptoms reported Hematologic/Lymphatic: denies: no symptoms reported Allergic/Immunologic: denies: no symptoms reported Past History - Adult - PAST MEDICAL HISTORY-ADULT Review of Records: reports: Nursing Assessment Review, Medications Reviewed, Social history reviewed & non-contributory. Major Childhood Illnesses: reports: denies history Cardiovascular: reports: denies history Respiratory: reports: denies history Gastrointestinal: reports: liver disease ([place]) Obstetrical/Gynecological: reports: denies history Genitourinary: reports: denies history Musculoskeletal: reports: denies history Neurological: reports: denies history Endocrine/Immune: reports: denies history Other Conditions: reports: denies history - IMMUNIZATION STATUS Childhood Immunizations: See Nurse Assessment Flu Vaccine: See Nurse Assessment - FAMILY HISTORY Family History: reviewed, not pertinent Physical Exam-General - PHYSICAL EXAM-ADULT Initial Vital Signs Reviewed: Yes - CONSTITUTIONAL General Appearance: alert - EYES Eyes: PERRL/EOMI, scleral icterus - HEAD, EARS, NOSE, MOUTH & THROAT HENMT: normocephalic/atraumatic, moist mucous membranes - NECK Neck: full range of motion, supple - RESPIRATORY Respiratory: decreased breath sounds (right base). negative: rales, wheezing - CARDIOVASCULAR Cardiovascular: regular rate, rhythm, other (4+ pitting edema bilateral lower extremities) - GASTROINTESTINAL (ABDOMEN) Abdominal Exam: distended, other (ascites) - MUSCULOSKELETAL Extremity: normal capillary refill, pedal edema (4+ pitting bilaterally). neg ative: pulse deficit - SKIN Integumentary: jaundice - NEUROLOGIC Neurologic: grossly normal - PSYCHIATRIC Psych/Mental Status: normal mood/affect, normal thought content, normal thought process Progress - PLAN OF CARE/RESULTS Progress/Plan/Lab Results: Vital Signs - 8 hr 01/13/20 20:22 Temperature 97.7 F Pulse Rate 89 Respiratory Rate 15 Blood Pressure 76/45 O2 Sat by Pulse Oximetry 96 Orders Category Date Time Status NEWS Score 2-4:Order NEWS Lactate Series NOW Care 01/13/20 20:26 Active Saline Loc DIRECTED Care 01/13/20 20:39 Active NPO Diet 01/13/20 20:39 Active AMMONIA [CHEM] Stat Lab 01/13/20 21:00 Ordered AMYLASE [CHEM] Stat Lab 01/13/20 21:00 Ordered BLOOD CULTURE [BLDCUL] Stat Lab 01/13/20 21:00 Ordered CBC WITH ELECTRONIC DIFF [HEME] Stat Lab 01/13/20 21:00 Ordered COMPREHENSIVE METABOLIC PANEL [CHEM] Stat Lab 01/13/20 21:00 Ordered LACTATE, PLASMA [CHEM] Stat Lab 01/13/20 21:00 Ordered LIPASE [CHEM] Stat Lab 01/13/20 21:00 Ordered URINALYSIS W/POSS RFLX CULT [URINALYSIS] Stat Lab 01/13/20 20:39 Uncollected 2315: The patient is orthostatic. Will give bolus. Result Diagrams: 01/13/20 20:47 01/13/20 20:47 - CONSULTS/PCP/HOSPITALIST Notification #1 *Consult/PCP/Hospitalist*: Dr. Beatty, Hospitalist paged at [phone] Time Discussed: 23:43 Reason/Comments: ascites, hypotension, Consult Disposition: Admit Departure - Departure Date of Disposition Decision: 01/13/20 Time of Disposition Decision: 21:21 DIAGNOSIS: Hypotension, Anemia, Ascites, Orthostatic hypotension Disposition: ADMITTED INPATIENT 09 Certified Medical Emergency: Emergent Condition: Stable Referrals and Follow-Ups: Hemant Nair MD [Primary Care Provider] - - Critical Care Note This patient required my direct & personal management of CC.: Yes Total Time (mins): 36 Critical Care Statement: This patient required my direct personal management to treat or rule out processes, the absence of which, could potentiallly result in sudden, clinically significant life or limb threatening deterioration. Attestation - Physician/ HANNAH Attestation Patient care was provided by Advanced Practice Provider:: No The physician spent face to face time with patient:: Yes Advanced Practice Provider documentation review:: Supervising physician onsite and consulted in the evaluation and care of this patient. The physician did have a face to face encounter with the patient. This chart was documented by the indicated scribe, (Pauline Hurtado Scribe) and accurately reflects the services I performed and decisions made by me, Moshe Daly MD, as attested by the provider's signature.
[2020-01-14] MEDS ORDERED: SODIUM CHLORIDE 0.9% INJ PRN (03:36)
[2020-01-14] MEDS ORDERED: ALBUMIN 25% IV ONE ×2 (03:36→13:04)
[2020-01-14] MEDS ORDERED: PHENERGAN IV PRN (03:36)
[2020-01-14] MEDS: HEPARIN SUBQ SCH ×2 (04:21→15:42)
[2020-01-14] MEDS: PRILOSEC PO SCH (06:30)
--- NOTE | 2020-01-14 07:40 | HISTORY AND PHYSICAL ---
PRIMARY CARE PHYSICIAN: Dr. Hemant Nair. CHIEF COMPLAINT: "My blood pressure is running low." HISTORY OF PRESENTING COMPLAINT: The patient is a 54-year-old with a history of liver cirrhosis, hypertension, GERD, who presents with low blood pressure noted over the last 2 days. The patient states that she has a home health nurse to help, and over the last 2 days they admit that the blood pressure has been running low; systolics have been running in the 70s. She denies any lightheadedness, any dizzy feeling although she has had this in the past. She does endorse that she has been having worsening abdominal swelling and leg swelling over the last 1 week. Of note, the patient was recently discharged from this facility like 2 weeks ago when she had abdominal paracentesis with drainage of 6 liters. Initially she had some relief with the paracentesis and was discharged, but her abdominal swelling progressively worsened and her leg swelling also worsened as well. She denies any shortness of breath. Denies any chest pain. Denies any abdominal pain. Denies any fever. Denies any nausea or vomiting. In the ER, patient's vitals were noted to be orthostatic and thus I was called to evaluate the patient. ALLERGIES: Codeine. HOME MEDICATIONS: Include esomeprazole 40 mg daily, Lasix 40 mg daily, gabapentin, lactulose b.i.d., nadolol 20 mg daily, paroxetine 30 mg daily, spironolactone 50 mg daily, tramadol 50 mg b.i.d. p.r.n. PAST MEDICAL HISTORY: Liver cirrhosis unknown cause, GERD, hypertension. PAST SURGICAL HISTORY: Tonsillectomy and hysterectomy in the past. FAMILY HISTORY: Denies any family history of any liver disease. Her mother had diabetes; father had hypertension, CAD status post CABG. SOCIAL HISTORY: She denies any history of smoking, and she drinks just occasionally. VITALS: Her blood pressure initially on presentation was 89/58, pulse was 82, saturating 100% on room air. She had orthostatic vitals done and showed a supine blood pressure of 87/63, sitting of 84/59 and a standing blood pressure 73/46. PHYSICAL EXAMINATION: GENERAL: This is a pleasant middle-age woman in no acute respiratory distress. HEENT: Mildly pale. Anicteric. Acyanotic. Mildly dry oral mucosa. CVS: S1, S2 heard. No murmurs, rubs, or gallops. RESPIRATORY: Good air entry bilaterally. No wheeze. No crepitations. No added sounds. ABDOMEN: Distended. No area of tenderness. Bowel sounds normoactive. No organomegaly noted. EXTREMITIES: She has 1+ to 2+ bilateral pedal edema noted. NEUROLOGIC: Alert and oriented x3. No gross focal neurologic abnormality. SKIN: No significant skin changes noted. LABS: WBC was 9.76, hemoglobin 9, hematocrit 26.8, platelets 243. Sodium was 129, potassium 4.7, chloride 94, bicarbonate 21. BUN 27, troponin 6, glucose 102. Total bilirubin is 2.62, AST 47, ALT 27, alkaline phosphatase 159. Ammonia is 84. BNP 614, total protein 6.5, albumin 3. Lactate was 2.2, later trending down to 1.5. UA shows specific gravity 1.016 with nitrite negative, leukocytes negative, WBCs, 10 to 20, bacteria negative. ASSESSMENT: He is a 54-year-old with a history of liver cirrhosis with recent abdominal paracentesis with drainage of 6 liters, who presents with low blood pressure. Orthostatic blood pressure was marginally low in the emergency room. The patient denies any lightheadedness or dizziness, and the patient describes worsening abdominal swelling and leg swelling since recent discharge 2 weeks ago. Acute diagnosis is decompensated liver cirrhosis with worsening ascites, hypotension, acute kidney injury. Chronic diagnosis liver cirrhosis, hypertension gastroesophageal reflux disease. PLAN: 1. Decompensated liver cirrhosis, it appears the patient's liver cirrhosis appears worsening and decompensated. The patient is being followed up by clerical coordinator and branch account executive. Considering the patient's liver cirrhosis decompensating, she may end up requiring frequent abdominal paracentesis. Given low blood pressure, I wanted to preserve the ratio of spironolactone and Lasix use to be a ratio of 5 to 2. We will decrease Lasix from 40 mg to 20 mg. We will continue patient on spironolactone 50 mg, and put patient on a low-sodium diet. Would also give IV albumin as a challenge: 1) to help with LUIS, and 2) to also help to pull fluid from third spacing. We will not do any IV fluid at this time as this may worsen ascites, and would use IV albumin as this will most likely improve blood pressure and also improve kidney functions and order laboratory findings. 2. LUIS, the patient is severely off her baseline; baseline is less than 1 and now Cr is 2.6. I will give an albumin challenge and expect improvement in kidney functions. If kidney function does not improve, the patient may need to be treated for a possible hepatorenal syndrome at that time. 3. Hypotension, patient with Liver Cirrhosis their blood pressure runs low. The patient does not appear to be symptomatic with this low blood pressure, and as such would not want to be aggressive with this. The patient is on nadolol for gastrointestinal prophylaxis, and spironolactone and Lasix to help mobilize fluid levels as well. We will monitor closely and, with the reduction in Lasix dose, we will hope for some improvement in blood pressure with this as well. 4. Worsening Ascites - We will schedule patient for an ultrasound-guided paracentesis as this most likely will help reduce abdominal distention. The patient has outpatient follow up with clerical coordinator and branch account executive. DVT prophylaxis heparin. CODE STATUS: Full code. DISPOSITION: Admit inpatient and would discharge when medically stable. [facility]
[2020-01-14] MEDS ORDERED: LACTULOSE PO SCH (09:00)
[2020-01-14 11:57] LABS: BASO# 0.03 X1000 (0.0-0.2); BASO% 0.4 % (0.0-0.8); EOS# 0.37 X1000 (0.0-0.7); EOS% 5.3 % (0.0-10.0); HEMATOCRIT 23.8 % (37.0-47.0); HEMOGLOBIN 8.2 g/dL (12.0-16.0); LYMPH# 1.17 X1000 (1.2-3.4); LYMPH% 16.7 % (20.5-51.1); MCH 33.3 PG (27-31); MCHC 34.5 g/dL (33-37); MCV 96.7 FL (81-99); MONO# 0.96 X1000 (0.11-0.59); MONO% 13.7 % (1.7-9.3); MPV 9.4 FL (7.4-10.4); NEUT# 4.47 X1000 (1.4-6.5); NEUT% 63.9 % (42.2-75.2); PLT 171 X1000 (130-400); RBC 2.46 XMIL (4.2-5.4); RDW 15.6 % (11.5-14.5)
[2020-01-14] MEDS: CORGARD PO SCH (12:16)
[2020-01-14] MEDS: ALDACTONE PO SCH (12:16)
[2020-01-14] MEDS: PAXIL PO SCH (12:17)
[2020-01-14] MEDS: LASIX PO SCH (12:17)
[2020-01-14 12:37] LABS: ALB/GLOB RATIO 0.9; ALBUMIN 2.8 g/dL (3.5-5.0); CALCIUM 8.7 mg/dL (8.8-10.2); CREATININE 1.7 mg/dL (0.5-0.9); POTASSIUM 4.8 mmol/L (3.5-5.1); TOTAL BILIRUBIN 3.26 mg/dL (0.20-1.00); TOTAL PROTEIN 5.8 g/dL (6.3-8.3)
[2020-01-14 14:32] LABS: UR CREAT RANDOM 62.9 mg/dL (11-20); UR PROT RANDOM 8.1 mg/dL
[2020-01-14] MEDS: LACTULOSE PO SCH ×3 (15:42→23:33)
--- NOTE | 2020-01-14 20:00 | PROGRESS NOTE ---
DATE: 01/14/2020 SUBJECTIVE: The patient states that she feels much better. No acute events noted overnight. OBJECTIVE: Vital Signs: Temperature 97.7 degrees, blood pressure 100/62, heart rate 82, respirations 20, O2 saturation is 98% on room air. General: This is an elderly female lying in bed in no acute distress. Heart: S1, S2 normal. Regular rate and rhythm. Lungs: Equal air entry bilaterally. No wheezing. No rales. Abdomen: Positive bowel sounds. Soft. Positive for ascites. Extremities: 1+ edema bilaterally. Neurologic: The patient is alert and oriented x3. LABORATORY DATA: White blood cell count 7, hemoglobin 8.2, hematocrit 23, platelets 171,000. Sodium 127, potassium 4.8, chloride 95, CO2 is 20, BUN 25, creatinine 1.7, glucose 141, total bilirubin 3.2, AST 36, ALT 22, albumin 2.8. ASSESSMENT AND PLAN: 1. Alcoholic liver cirrhosis. Aware. Continue on the current treatment regimen. 2. Hepatic encephalopathy. We will continue on lactulose with a goal of at least 3 bowel movements a day. The patient is also on rifaximin. 3. Acute kidney injury. Slowly improving. The patient is currently receiving albumin infusions. 4. Refractory ascites. Will order an ultrasound guided paracentesis to be done on Thursday. 5. Hyponatremia. Likely secondary to hypervolemia. We will continue to monitor the sodium closely. 6. Anemia. Continue to monitor closely. 7. Metabolic acidosis. Monitor closely. 8. Deep vein thrombosis prophylaxis. Continue on heparin. 9. Disposition. We will consult Physical Therapy. cc: MD MARGARITA Saavedra
[2020-01-15] MEDS: LACTULOSE PO SCH ×3 (06:24→17:06)
[2020-01-15] MEDS: PRILOSEC PO SCH (06:24)
[2020-01-15 07:44] LABS: INR 1.74; PROTIME 20.7 Seconds (11.0-16.0)
[2020-01-15 07:49] LABS: HEMATOCRIT 22.5 % (37.0-47.0); HEMOGLOBIN 7.9 g/dL (12.0-16.0); MCH 33.9 PG (27-31); MCHC 35.1 g/dL (33-37); MCV 96.6 FL (81-99); MPV 9.1 FL (7.4-10.4); RBC 2.33 XMIL (4.2-5.4); RDW 15.8 % (11.5-14.5); WBC 7.22 X1000 (4.8-10.8)
[2020-01-15 08:16] LABS: ALB/GLOB RATIO 1.3; ALBUMIN 3.2 g/dL (3.5-5.0); CALCIUM 9.2 mg/dL (8.8-10.2); MAGNESIUM 1.2 mg/dL (1.5-2.7); POTASSIUM 4.1 mmol/L (3.5-5.1); TOTAL BILIRUBIN 4.81 mg/dL (0.20-1.00); TOTAL PROTEIN 5.6 g/dL (6.3-8.3)
[2020-01-15] MEDS ORDERED: ALBUMIN 25% IV SCH (09:00)
[2020-01-15] MEDS ORDERED: VITAMIN K 10 MG in NS 50 ML IV ONE (09:09)
[2020-01-15] MEDS ORDERED: MAGNESIUM SULFATE 2 GM/S.W.I. 2 GM/50 ML IVPB IV ONE (09:09)
[2020-01-15] MEDS ORDERED: NS 500 ML ONE (09:36)
[2020-01-15] MEDS: HEPARIN SUBQ SCH ×2 (09:40→21:01)
[2020-01-15] MEDS: LASIX PO SCH (09:41)
[2020-01-15] MEDS: CORGARD PO SCH (09:41)
[2020-01-15] MEDS: ALDACTONE PO SCH (09:41)
[2020-01-15] MEDS: PAXIL PO SCH (09:41)
--- NOTE | 2020-01-15 17:07 | PROGRESS NOTE ---
DATE: 01/15/2020 SUBJECTIVE: The patient is resting comfortably in bed. She states that she feels much better. No acute events noted overnight. OBJECTIVE: Vital Signs: Temperature 98.8 degrees, blood pressure 136/70, heart rate 93, respirations 20, O2 saturation is 97% on room air. General: This is an elderly female lying in bed, in no acute distress. Heart: S1, S2 normal. Regular rate and rhythm. Lungs: Equal air entry bilaterally. Diminished breath sounds at the bases. Abdomen: Positive bowel sounds. Soft. Ascites is present. Extremities: There is 1+ edema bilaterally. Neurologic: The patient is alert and oriented x3. LABS: White blood cell count 7.2, hemoglobin 7.9, hematocrit 22, platelets 155,000. INR 1.7. Sodium 130, potassium 4.1, chloride 99, CO2 21, BUN 17, creatinine 1, glucose 109, magnesium 1.2, AST 36, ALT 21, total bilirubin 4.8. ASSESSMENT AND PLAN: 1. Alcoholic liver cirrhosis. Aware. 2. Acute kidney injury. Slowly improving. The patient is responding well to the current treatment regimen. 3. Refractory ascites. The patient is scheduled to undergo an ultrasound-guided paracentesis tomorrow. 4. Hyponatremia. Slightly improved. Continue to monitor closely. 5. Hypomagnesemia. We will replace the patient's magnesium. 6. Anemia. Continue to monitor closely. 7. Coagulopathy. We will order a dose of vitamin K to be given today. 8. Disposition. The patient should be stable for discharge home tomorrow after she undergoes her ultrasound-guided paracentesis. cc: Shaunna Davidson MD
[2020-01-15] MEDS ORDERED: MAGNESIUM SULFATE 4 GM/S.W.I. 4 GM/100 ML IVPB IV ONE (18:09)
[2020-01-16] MEDS: LACTULOSE PO SCH ×2 (00:35→05:24)
[2020-01-16] MEDS ORDERED: VITAMIN K 10 MG in NS 50 ML IV ONE (06:00)
[2020-01-16] MEDS: PRILOSEC PO SCH (06:13)
[2020-01-16 07:08] LABS: HEMATOCRIT 22.4 % (37.0-47.0); HEMOGLOBIN 7.4 g/dL (12.0-16.0); MPV 8.7 FL (7.4-10.4); RBC 2.31 XMIL (4.2-5.4); RDW 15.8 % (11.5-14.5); WBC 7.29 X1000 (4.8-10.8)
[2020-01-16 07:14] LABS: INR 1.77
[2020-01-16 07:32] LABS: AGAP 12; ALB/GLOB RATIO 1.2; ALBUMIN 3.3 g/dL (3.5-5.0); ALKALINE PHOSPHATASE 82 U/L (32-104); BUN 10 mg/dL (8-22); CALCIUM 9.3 mg/dL (8.8-10.2); CHLORIDE 102 mmol/L (98-107); COSMO 274; CREATININE 0.6 mg/dL (0.5-0.9); ESTIMATED GFR > 60; GLUCOSE 111 mg/dL (70-104); GOT 40 U/L (10-30); GPT 21 U/L (10-36); POTASSIUM 3.7 mmol/L (3.5-5.1); SODIUM 137 mmol/L (136-145); TCO2 23 mmol/L (25-35); TOTAL BILIRUBIN 7.41 mg/dL (0.20-1.00)
[2020-01-16] MEDS ORDERED: NS 500 ML IV ONE (08:40)
[2020-01-16] MEDS: ALDACTONE PO SCH (09:26)
[2020-01-16] MEDS: PAXIL PO SCH (09:26)
[2020-01-16] MEDS: LASIX PO SCH (09:26)
[2020-01-16] MEDS: CORGARD PO SCH (09:27)
[2020-01-16] MEDS: HEPARIN SUBQ SCH (09:27)
[2020-01-16] MEDS: ALBUMIN 25% IV ONE ×2 (13:12→14:23)
--- NOTE | 2020-01-16 14:50 | Diag Imaging Result Doc PS360 ---
EXAM: US ABD PARACENTESIS W S/I 01/16/2020 HISTORY: ascites TECHNIQUE: Ultrasound-guided paracentesis COMMENT: The risks and benefits of the procedure were discussed with the patient including the possibility of bleeding, infection, puncture of hollow viscus or reaction to lidocaine and she agreed to the procedure. Following sterile preparation the skin and administration 1% lidocaine to the skin and deeper soft tissues over the right lateral abdomen, the catheter was placed and 6.1 L of straw-colored fluid was drained. IMPRESSION: Successful ultrasound-guided paracentesis. Electronically signed by Adolph Alcaraz 01/16/2020 2:48 PM
[2020-01-16 16:45] VITALS: BP 96/58
--- NOTE | 2020-01-17 07:01 | DISCHARGE SUMMARY ---
ADMISSION DATE: 01/13/2020 DISCHARGE DATE: 01/16/2020 FINAL DISCHARGE DIAGNOSES: 1. Alcoholic liver cirrhosis. 2. Acute kidney injury. 3. Refractory ascites. 4. Hyponatremia. 5. Hepatic encephalopathy. 6. Hypomagnesemia. 7. Anemia of chronic disease. 8. Coagulopathy. PROCEDURES: Ultrasound-guided paracentesis performed on 01/16/2020, and 6.1 liters of peritoneal fluid was drained. HOSPITAL COURSE: Ms. Ramos is a 54-year-old female with a history of alcoholic liver cirrhosis with refractory ascites who presented to the ER with a chief complaint of abdominal pain and distention. The patient was admitted to the hospitalist service. Upon further evaluation, the patient was noted to be in acute kidney injury with a BUN of 27 and a creatinine of 2.6. She was also hyponatremic with a sodium of 129. The patient was started on albumin infusions, and her Aldactone was continued. Slowly, over the course of the hospitalization with albumin infusions, the patient's creatinine normalized. The patient was taken for an ultrasound- guided paracentesis on 01/16/2020. At that time, 6.1 liters of peritoneal fluid was removed. On the day of discharge, the patient's BUN was noted to be 10 with a creatinine of 0.6, and the patient stated that she felt much better. Also, her ammonia level was much better and noted to be 18. The patient was ultimately cleared for discharge home on 01/16/2020. DISCHARGE MEDICATIONS: 1. Nadolol 20 mg oral daily. 2. Nexium 40 mg p.o. daily. 3. Lasix 40 mg p.o. daily. 4. Paxil 30 mg oral daily. 5. Aldactone 50 mg oral daily. 6. Gabapentin 2 tablets oral twice a day. 7. Lactulose 15 mL oral twice a day to have at least 3 bowel movements a day. 8. Tramadol 50 mg oral twice a day p.r.n. for pain. DISCHARGE DIET: Low sodium diet. ACTIVITY: As tolerated. FOLLOWUP INSTRUCTIONS: The patient will need to follow up with Dr. Nair in 1 to 2 weeks. cc: Shaunna Davidson MD [facility]TD[facility]
== END 2020-01-16 17:10 | disposition home health service (06) | DRG 433 ==
LOC: ED 20:14 → 3N 20:15 → SUATTDRO 20:15
PROVIDERS: ATTEND Internal Medicine